=== PATIENT | male | born 1985 | race Two or more races ===

== ENCOUNTER 2024-01-29 09:14 | Emergency (ER) | payer MEDICAID ==
[2024-01-29] MEDS ORDERED: Sodium Chloride 0.9% 20 ML SDV IV PRN (09:40)
[2024-01-29] MEDS: Sodium Chloride 0.9% 1,000 ML IV ONE (09:52)
[2024-01-29] MEDS: Ketorolac 30 MG/ML SDV IVPUSH ONE ×2 (09:52→09:55)
[2024-01-29] MEDS: Sodium Chloride 0.9% 10 ML Syringe FLUSH PRN (09:53)
[2024-01-29] MEDS: Sodium Chloride 0.9% 2.5 ML Syringe FLUSH PRN (09:53)
[2024-01-29] MEDS: Ibuprofen 600 MG Tab PO ONE (09:55)
[2024-01-29] MEDS: Acetaminophen 500 MG Tab PO ONE (09:56)
[2024-01-29 10:02] LABS: BASOPHILS ABSOLUTE AUTO 0.02 K/uL (0.00-0.20); BASOPHILS PERCENT AUTO 0.4 % (0.0-1.0); EOSINOPHILS ABSOLUTE AUTO 0.14 K/uL (0.00-0.45); EOSINOPHILS PERCENT AUTO 3.1 % (0.0-6.0); HEMATOCRIT 43.9 % (42.0-52.0); HEMOGLOBIN 15.1 g/dL (14.0-18.0); IMMATURE GRAN ABSOLUTE AUTO 0.03 K/uL (0.00-0.05); IMMATURE GRAN PERCENT AUTO 0.7 % (0.0-0.4); LYMPHOCYTES ABSOLUTE AUTO 0.74 K/uL (1.00-4.80); LYMPHOCYTES PERCENT AUTO 16.2 % (24.0-44.0); MEAN CORPUSCULAR HEMOGLOBIN 29.6 pg (28.0-32.0); MEAN CORPUSCULAR HGB CONC 34.4 g/dL (32.0-36.0); MEAN CORPUSCULAR VOLUME 86.1 fL (83.0-99.0); MONOCYTES ABSOLUTE AUTO 0.73 K/uL (0.00-0.80); MONOCYTES PERCENT AUTO 15.9 % (0.0-8.0); NEUTROPHILS ABSOLUTE AUTO 2.92 K/uL (1.80-7.70); NEUTROPHILS PERCENT AUTO 63.7 % (41.0-71.0); PLATELET COUNT,PLT 152 K/uL (150-400); WHITE BLOOD CELL COUNT,WBC 4.58 K/uL (3.9-11.3)
[2024-01-29 10:19] LABS: CORONAVIRUS COVID-19 NAA NEGATIVE (NEGATIVE); INFLUENZA A NAA NEGATIVE (NEGATIVE); INFLUENZA B NAA NEGATIVE (NEGATIVE)
[2024-01-29 10:24] LABS: ALBUMIN 3.6 g/dL (3.4-5.0); BILIRUBIN TOTAL 0.6 mg/dL (0.2-1.0); CALCIUM 8.4 mg/dL (8.5-10.1); CARBON DIOXIDE,CO2 27.5 mmol/L (21.0-32.0); CREATININE 1.4 mg/dL (0.8-1.3); EST CRCL DRUG DOSING (CG) 79.29 mL/min; MAGNESIUM 1.5 mg/dL (1.8-2.4); POTASSIUM,K 3.7 mmol/L (3.5-5.1); PROTEIN TOTAL,TP 7.1 g/dL (6.4-8.2)
[2024-01-29] MEDS ORDERED: Sodium Chloride 0.9% 1,000 ML IV ONE (11:03)
== END 2024-01-29 11:45 | disposition home or self-care (01) ==
LOC: MW.ED 09:14
DX: R50.9 Fever, unspecified (principal); R53.1 Weakness; M79.10 Myalgia, unspecified site; R74.01 Elevation of levels of liver transaminase levels; F10.90 Alcohol use, unspecified, uncomplicated
CPT/HCPCS: 0240U; 36415; 80053; 82550; 83735; 85025; 85652; 86140; 86308; 96361; 96374; 99284; J1885; J3490; J7030